=== PATIENT | male | born 1975 | race African-American/Black ===

== ENCOUNTER 2017-05-28 20:50 | Inpatient (IN) | payer MEDICARE, MEDICAID ==
[~2017-05-28] VITALS: Ht 185.4 cm; Wt 244.5 kg
[2017-05-28 21:41] LABS: BASO % 0 % (0-3); EOS % 0 % (0-3); HEMATOCRIT 34.8 % (39.0-53.0); HEMOGLOBIN 11.6 g/dL (13.0-17.5); LYMPH % 9 % (24-48); MEAN CORPUSCULAR HEMOGLOBIN 29 pg (25-35); MEAN CORPUSCULAR HGB CONC 33 g/dL (31-37); MEAN CORPUSCULAR VOLUME 88 fL (79-100); MONO % 10 % (0-9); NEUT % 81 % (31-73); PLATELET COUNT 703 x10^3/uL (140-400); RED BLOOD COUNT 3.96 x10^6/uL (4.30-5.70); WHITE BLOOD COUNT 12.2 x10^3/uL (4.0-11.0)
[2017-05-28] MEDS ORDERED: IV NORMAL SALINE 1000ML BAG 1,000 ML IV ONE ×2 (21:45→23:15)
[2017-05-28 21:54] LABS: CALCIUM 8.6 mg/dL (8.5-10.1); CREATININE 1.5 mg/dL (0.7-1.3); GFR 61.8; POTASSIUM 4.2 mmol/L (3.5-5.1)
[2017-05-28] MEDS ORDERED: VANCOMYCIN 2 GM in IV NORMAL SALINE 500ML BAG 500 ML IV ONE (22:00)
[2017-05-28] MEDS ORDERED: ONDANSETRON PF 4 MG/2 ML VIAL. IV PRN (22:15)
--- NOTE | 2017-05-28 23:05 | PHYS DOC ---
Past Medical History Past Medical History: Other Additional Past Medical Histor: LYMPHEDEMA Past Surgical History: Other Additional Past Surgical Histo: HERNIA Alcohol Use: None Drug Use: None Adult General Chief Complaint Chief Complaint: LOWER EXTREMITY EDEMA HPI HPI 41-year-old male with a history of chronic lymphedema and morbid obesity at 430 pounds. Patient now presents to the emergency department complaining of right lower extremity redness. His home health care nurse told him she thought his wound was infected so he was referred to the emergency department for evaluation. Patient denies fevers chills sweats or shaking chills. He has no headache or stiff neck. No chest pain or shortness of breath no abdominal pain. His legs early sore and by his description it does not feel any different. He does have severe chronic skin changes bilateral lower extremities. The right leg has a deep skinfold which has a bad odor coming from it however patient says he is not having any more discomfort than he typically would. Review of Systems Review of Systems Constitutional: Denies fever or chills [] Eyes: Denies change in visual acuity, redness, or eye pain [] HENT: Denies nasal congestion or sore throat [] Respiratory: Denies cough or shortness of breath [] Cardiovascular: No additional information not addressed in HPI [] GI: Denies abdominal pain, nausea, vomiting, bloody stools or diarrhea [] : Denies dysuria or hematuria [] Musculoskeletal: Denies back pain or joint pain [] Integument: Denies rash or skin lesions [] Neurologic: Denies headache, focal weakness or sensory changes [] Endocrine: Denies polyuria or polydipsia [] Current Medications Current Medications Current Medications Medications (Trade) Dose Ordered Sig/Beatriz Start Time Stop Time Status Last Admin Dose Admin Ondansetron HCl (Zofran) 4 mg PRN Q8HRS PRN 05/28/17 22:15 05/29/17 22:14 Sodium Chloride 1,000 ml @ 125 mls/hr 1X ONCE 05/28/17 21:45 05/29/17 05:44 05/28/17 21:48 125 MLS/HR Vancomycin HCl 2 gm/Sodium Chloride 500 ml @ 250 mls/hr 1X ONCE 05/28/17 22:00 05/28/17 23:59 05/28/17 22:04 250 MLS/HR Allergies Allergies Allergies Coded Allergies Type Severity Reaction Last Updated Verified Penicillins Allergy Unknown "RASH" 05/28/17 No Physical Exam Physical Exam Alert morbidly obese male 430 pounds alert comfortable appearing no acute distress texting on his phone and making phone calls. Clear lungs regular rate and rhythm no tachycardia benign abdomen bilateral lower extremity with severe chronic changes of lymphedema with chronic deformity and redundant tissue folds. Right knee and right proximal leg area with erythema warmth but no fluctuance or crepitus. Patient has a deep skinfold which is macerated and has an odor. No pain with movement of the leg however patient is at his baseline is unable to lift it off the bed because of its extreme size. Constitutional: Well developed, well nourished, no acute distress, non-toxic appearance. HENT: Normocephalic, atraumatic, bilateral external ears normal, oropharynx moist, no oral exudates, nose normal. Eyes: PERRLA, EOMI, conjunctiva normal, no discharge. Neck: Normal range of motion, no tenderness, supple, no stridor. Cardiovascular:Heart rate regular rhythm, no murmur Lungs & Thorax: Bilateral breath sounds clear to auscultation Abdomen: Bowel sounds normal, soft, no tenderness, no masses, no pulsatile masses. Skin: As above Back: No tenderness, no CVA tenderness. Extremities: No tenderness, no cyanosis, no clubbing, ROM intact, no edema. Neurologic: Alert and oriented X 3, normal motor function, normal sensory function, no focal deficits noted. Psychologic: Affect normal, judgement normal, mood normal. Current Patient Data Vital Signs Vital Signs Date Time Temp Pulse Resp B/P (MAP) Pulse Ox O2 Delivery O2 Flow Rate FiO2 05/28/17 20:50 98.9 132 20 157/85 (109) 97 Room Air 98.9 Lab Values Laboratory Tests Test 05/28/17 21:00 White Blood Count 12.2 x10^3/uL (4.0-11.0) H Red Blood Count 3.96 x10^6/uL (4.30-5.70) L Hemoglobin 11.6 g/dL (13.0-17.5) L Hematocrit 34.8 % (39.0-53.0) L Mean Corpuscular Volume 88 fL (79-100) Mean Corpuscular Hemoglobin 29 pg (25-35) Mean Corpuscular Hemoglobin Concent 33 g/dL (31-37) Red Cell Distribution Width 15.0 % (11.5-14.5) H Platelet Count 703 x10^3/uL (140-400) H Neutrophils (%) (Auto) 81 % (31-73) H Lymphocytes (%) (Auto) 9 % (24-48) L Monocytes (%) (Auto) 10 % (0-9) H Eosinophils (%) (Auto) 0 % (0-3) Basophils (%) (Auto) 0 % (0-3) Neutrophils # (Auto) 9.9 x10^3uL (1.8-7.7) H Lymphocytes # (Auto) 1.0 x10^3/uL (1.0-4.8) Monocytes # (Auto) 1.2 x10^3/uL (0.0-1.1) H Eosinophils # (Auto) 0.0 x10^3/uL (0.0-0.7) Basophils # (Auto) 0.0 x10^3/uL (0.0-0.2) Sodium Level 130 mmol/L (136-145) L Potassium Level 4.2 mmol/L (3.5-5.1) Chloride Level 93 mmol/L (98-107) L Carbon Dioxide Level 28 mmol/L (21-32) Anion Gap 9 (6-14) Blood Urea Nitrogen 17 mg/dL (8-26) Creatinine 1.5 mg/dL (0.7-1.3) H Estimated GFR (Cockcroft-Gault) 61.8 Glucose Level 118 mg/dL (70-99) H Lactic Acid Level 2.7 mmol/L (0.4-2.0) H Calcium Level 8.6 mg/dL (8.5-10.1) Troponin I Quantitative < 0.017 ng/mL (0.000-0.055) Laboratory Tests 05/28/17 21:00 Laboratory Tests 05/28/17 21:00 EKG EKG Normal sinus tachycardia at 119 normal axis no STEMI interpreted by ne Radiology/Procedures Radiology/Procedures Chest x-ray with Chronic changes no acute disease[] interpreted by ne Course & Med Decision Making Course & Med Decision Making Pertinent Labs and Imaging studies reviewed. (See chart for details) Signs and symptoms consistent with cellulitis in the setting of severe chronic lymphedema. Patient with mild tachycardia. IV fluids administered. Blood cultures drawn and antibiotic coverage initiated. Case discussed with Dr. Crane pulseless on-call who is aware of history and findings and agrees with inpatient telemetry admission to her service. [] Dragon Disclaimer Dragon Disclaimer This electronic medical record was generated, in whole or in part, using a voice recognition dictation system. Departure Departure Impression: Primary Impression: Cellulitis of right leg Additional Impression: Tachycardia Disposition: ADMITTED INPATIENT Admitting Physician: Génesis Crane Condition: STABLE Referrals: NO PCP (PCP) Problem Qualifiers LUCIE MCGRATH MD May 28, 2017 23:04
[2017-05-29 03:00] VITALS: BP 117/52
[2017-05-29 04:31] LABS: BILIRUBIN,URINE NEGATIVE (NEG); GLUCOSE,URINE NEGATIVE (NEG); NITRITE,URINE NEGATIVE (NEG); PH,URINE 5.5; PROTEIN,URINE NEGATIVE (NEG-TRACE)
[2017-05-29 04:51] LABS: BACTERIA,URINE FEW /HPF (0-FEW); RBC,URINE OCC /HPF (0-2); SQUAMOUS EPITHELIAL CELL,UR FEW /LPF
[2017-05-29 07:00] VITALS: BP 117/73
--- NOTE | 2017-05-29 08:05 | RAD ---
AP portable chest radiograph 05/28/2017 Clinical History: Bilateral leg swelling. An AP portable erect digital radiograph of the chest was obtained. Comparison study is dated 06/01/2006. The patient is slightly rotated to the right. The cardiac silhouette is normal in size. The thoracic aorta is minimally tortuous. No acute pulmonary infiltrate is seen. No pleural effusion or pneumothorax is noted. The osseous structures are grossly intact. Impression: No acute abnormality is seen.
[2017-05-29] MEDS: HYDROcodone/APAP 5/325MG 1 TAB TABLET PO PRN ×2 (08:13→21:00)
[2017-05-29] MEDS ORDERED: diphenhydrAMINE HCL 25 MG CAPSULE PO PRN (08:30)
[2017-05-29] MEDS ORDERED: ZOLPIDEM 5 MG TABLET. PO PRN (08:30)
--- NOTE | 2017-05-29 08:42 | PDOC1 ---
History and Physical Date of Admission Date of Admission DATE: 05/29/17 TIME: 08:34 Identification/Chief Complaint Chief Complaint leg pain, redness Problems: Source Source: Chart review, Patient History of Present Illness History of Present Illness MR. Cr, is 41-year-old male with a history of chronic lymphedema and morbid obesity BMI 65. He has not felt well for one week, lethargic, tired, and had worsening swellign of his RLE, with pain and then odor. he was given IV vanco in the ER and reports that he now feels better a few hours later than he has in almost 2 weeks. Weight stable, he has been disabled with chronic lymphedema since 2007. he takes no home meds, has no PCP his lymphedema wraps are old, and have not been effective lately, he has been in outpatient OT lymphedema clinic here prev. Past Medical History Cardiovascular: No pertinent hx Pulmonary: No pertinent hx GI: No pertinent hx Musculoskeletal: low back pain, Osteoarthritis Rheumatologic: Other ENT: No pertinent hx Endocrine: No pertinent hx Dermatology: No pertinent hx Social History Smoke: No ALCOHOL: none Drugs: None Current Medications Current Medications Current Medications Vancomycin HCl 2 gm/Sodium Chloride 500 ml @ 250 mls/hr 1X ONCE IV Last administered on 05/28/17 22:04; Start 05/28/17 at 22:00; Stop 05/28/17 at 23:59 ; Status DC Sodium Chloride 1,000 ml @ 125 mls/hr 1X ONCE IV Last administered on 21:48; Start 05/28/17 at 21:45; Stop 05/29/17 at 05:44; Status DC Ondansetron HCl (Zofran) 4 mg PRN Q8HRS PRN IV NAUSEA/VOMITING; Start 05/28/17 at 22:15; Stop 05/29/17 at 22:14 Sodium Chloride 1,000 ml @ 125 mls/hr 1X ONCE IV ; Start 05/28/17 at 23:15; Stop 05/29/17 at 07:14; Status DC Acetaminophen/ Hydrocodone Bitart (Lortab 5/325) 1 tab PRN Q6HRS PRN PO PAIN Last administered on 05/29/17 08:13; Start 05/29/17 at 07:45 Diphenhydramine HCl (Benadryl) 25 mg PRN Q6HRS PRN PO ITCHING; Start 05/29/17 at 08:30 Zolpidem Tartrate (Ambien) 5 mg PRN QHS PRN PO INSOMNIA, MAY REPEAT IN 1HR; Start 05/29/17 at 08:30 Allergies Allergies: Coded Allergies: Penicillins (Verified Allergy, Unknown, "RASH", 05/29/17) ROS General: YES: Chills, Fatigue, Malaise PSYCHOLOGICAL ROS: No: Anxiety, Behavioral Disorder, Concentration difficultie , Decreased libido, Depression, Disorientation, Hallucinations, Hostility, Irritablity, Memory difficulties, Mood Swings, Obsessive thoughts, Physical abuse, Sexual abuse, Sleep disturbances, Suicidal ideation, Other Eyes: No Blurry vision, No Decreased vision, No Double vision, No Dry eyes, No Excessive tearing, No Eye Pain, No Itchy Eyes, No Loss of vision, No Photophobia , No Scotomata, No Uses contacts, No Uses glasses, No Other HEENT: YES: Heacaches, No: Visual Changes, Hearing change, Nasal congestion, Nasal discharge, Oral lesions, Sinus pain, Sore Throat, Epistaxis, Sneezing, Snoring, Tinnitus, Vertigo, Vocal changes, Other Respiratory: No: Cough, Hemoptysis, Orthopnea, Pleuritic Pain, Shortness of breath, SOB with excertion, Sputum Changes, Stridor, Tachypnea, Wheezing, Other Cardiovascular: No Chest Pain, No Palpitations, No Orthopnea, No Paroxysmal Noc. Dyspnea, No Edema, No Lt Headedness, No Other Gastrointestinal: Yes Nausea, No Vomiting, No Abdominal Pain, No Diarrhea, No Constipation, No Melena, No Hematochezia, No Other Genitourinary: No Dysuria, No Frequency, No Incontinence, No Hematuria, No Retention, No Discharge, No Urgency, No Pain, No Flank Pain, No Other, No , No , No , No , No , No , No Musculoskeletal: Yes Gait Disturbance, Yes Joint Pain, Yes Joint Stiffness, Yes Joint Swelling, Yes Muscle Pain, Yes Pain In:, Yes Swelling In:, No Muscular Weakness, No Other Neurological: No Behavorial Changes, No Bowel/Bladder ControlChng, No Confusion , No Dizziness, No Gait Disturbance, No Headaches, No Impaired Coord/balance, No Memory Loss, No Numbness/Tingling, No Seizures, No Speech Problems, No Tremors, No Visual Changes, No Weakness, No Other Skin: Yes Dry Skin, Yes Rash, No Eczema, No Hair Changes, No Lumps, No Mole Changes, No Mottling, No Nail Changes, No Pruritus, No Skin Lesion Changes, No Other, No Acne Physical Exam General: Alert, Cooperative, No acute distress HEENT: EOMI Lungs: Normal air movement Heart: no gallops, no murmurs Abdomen: Normal bowel sounds, Soft (very obese) Extremities: Other (massive lymphedema, a few inches deep on left ankle, maybe 4-5 inches of edema- deep on right skin to ankle, with promienent fold, dry skin that i ssloughing, ) Skin: Other (redbess, malodor, skin flaking) Neuro: Normal speech, Sensation intact Psych/Mental Status: Mental status NL, Mood NL Vitals Vitals Vital Signs Date Time Temp Pulse Resp B/P (MAP) Pulse Ox O2 Delivery O2 Flow Rate FiO2 05/29/17 07:00 99.0 77 18 117/73 (88) 98 Room Air 99.0 Labs Labs Laboratory Tests Test 05/28/17 21:00 05/29/17 00:10 05/29/17 04:08 White Blood Count 12.2 x10^3/uL (4.0-11.0) Red Blood Count 3.96 x10^6/uL (4.30-5.70) Hemoglobin 11.6 g/dL (13.0-17.5) Hematocrit 34.8 % (39.0-53.0) Mean Corpuscular Volume 88 fL (79-100) Mean Corpuscular Hemoglobin 29 pg (25-35) Mean Corpuscular Hemoglobin Concent 33 g/dL (31-37) Red Cell Distribution Width 15.0 % (11.5-14.5) Platelet Count 703 x10^3/uL (140-400) Neutrophils (%) (Auto) 81 % (31-73) Lymphocytes (%) (Auto) 9 % (24-48) Monocytes (%) (Auto) 10 % (0-9) Eosinophils (%) (Auto) 0 % (0-3) Basophils (%) (Auto) 0 % (0-3) Neutrophils # (Auto) 9.9 x10^3uL (1.8-7.7) Lymphocytes # (Auto) 1.0 x10^3/uL (1.0-4.8) Monocytes # (Auto) 1.2 x10^3/uL (0.0-1.1) Eosinophils # (Auto) 0.0 x10^3/uL (0.0-0.7) Basophils # (Auto) 0.0 x10^3/uL (0.0-0.2) Sodium Level 130 mmol/L (136-145) Potassium Level 4.2 mmol/L (3.5-5.1) Chloride Level 93 mmol/L (98-107) Carbon Dioxide Level 28 mmol/L (21-32) Anion Gap 9 (6-14) Blood Urea Nitrogen 17 mg/dL (8-26) Creatinine 1.5 mg/dL (0.7-1.3) Estimated GFR (Cockcroft-Gault) 61.8 Glucose Level 118 mg/dL (70-99) Lactic Acid Level 2.7 mmol/L (0.4-2.0) 1.7 mmol/L (0.4-2.0) Calcium Level 8.6 mg/dL (8.5-10.1) Troponin I Quantitative < 0.017 ng/mL (0.000-0.055) Urine Collection Type Unknown Urine Color Yellow Urine Clarity Clear Urine pH 5.5 Urine Specific [place] 1.010 Urine Protein Negative mg/dL (NEG-TRACE) Urine Glucose (UA) Negative mg/dL (NEG) Urine Ketones (Stick) Negative mg/dL (NEG) Urine Blood Negative (NEG) Urine Nitrite Negative (NEG) Urine Bilirubin Negative (NEG) Urine Urobilinogen Dipstick 1.0 mg/dL (0.2 mg/dL) Urine Leukocyte Esterase Negative (NEG) Urine RBC Occ /HPF (0-2) Urine WBC 1-4 /HPF (0-4) Urine Squamous Epithelial Cells Few /LPF Urine Amorphous Sediment Present /HPF Urine Bacteria Few /HPF (0-FEW) Urine Mucus Mod /LPF Laboratory Tests Test 05/28/17 21:00 05/29/17 00:10 05/29/17 04:08 White Blood Count 12.2 x10^3/uL (4.0-11.0) Red Blood Count 3.96 x10^6/uL (4.30-5.70) Hemoglobin 11.6 g/dL (13.0-17.5) Hematocrit 34.8 % (39.0-53.0) Mean Corpuscular Volume 88 fL (79-100) Mean Corpuscular Hemoglobin 29 pg (25-35) Mean Corpuscular Hemoglobin Concent 33 g/dL (31-37) Red Cell Distribution Width 15.0 % (11.5-14.5) Platelet Count 703 x10^3/uL (140-400) Neutrophils (%) (Auto) 81 % (31-73) Lymphocytes (%) (Auto) 9 % (24-48) Monocytes (%) (Auto) 10 % (0-9) Eosinophils (%) (Auto) 0 % (0-3) Basophils (%) (Auto) 0 % (0-3) Neutrophils # (Auto) 9.9 x10^3uL (1.8-7.7) Lymphocytes # (Auto) 1.0 x10^3/uL (1.0-4.8) Monocytes # (Auto) 1.2 x10^3/uL (0.0-1.1) Eosinophils # (Auto) 0.0 x10^3/uL (0.0-0.7) Basophils # (Auto) 0.0 x10^3/uL (0.0-0.2) Sodium Level 130 mmol/L (136-145) Potassium Level 4.2 mmol/L (3.5-5.1) Chloride Level 93 mmol/L (98-107) Carbon Dioxide Level 28 mmol/L (21-32) Anion Gap 9 (6-14) Blood Urea Nitrogen 17 mg/dL (8-26) Creatinine 1.5 mg/dL (0.7-1.3) Estimated GFR (Cockcroft-Gault) 61.8 Glucose Level 118 mg/dL (70-99) Lactic Acid Level 2.7 mmol/L (0.4-2.0) 1.7 mmol/L (0.4-2.0) Calcium Level 8.6 mg/dL (8.5-10.1) Troponin I Quantitative < 0.017 ng/mL (0.000-0.055) Urine Collection Type Unknown Urine Color Yellow Urine Clarity Clear Urine pH 5.5 Urine Specific [place] 1.010 Urine Protein Negative mg/dL (NEG-TRACE) Urine Glucose (UA) Negative mg/dL (NEG) Urine Ketones (Stick) Negative mg/dL (NEG) Urine Blood Negative (NEG) Urine Nitrite Negative (NEG) Urine Bilirubin Negative (NEG) Urine Urobilinogen Dipstick 1.0 mg/dL (0.2 mg/dL) Urine Leukocyte Esterase Negative (NEG) Urine RBC Occ /HPF (0-2) Urine WBC 1-4 /HPF (0-4) Urine Squamous Epithelial Cells Few /LPF Urine Amorphous Sediment Present /HPF Urine Bacteria Few /HPF (0-FEW) Urine Mucus Mod /LPF VTE Prophylaxis Ordered VTE Prophylaxis Devices: No VTE Pharmacological Prophylaxi: Yes Assessment/Plan Assessment/Plan sepsis; from skin infection cellulitis, RLE, with marked lymphedema morbid obesity, BMI 65 leg pain right hyponatremia, dry, vasomotor nephropathy, no Hx of CKD, Cr 1.5 today thrombocytosis, reactive PT and OT pain control he feels improved with IV Vanc, will continue, ID consult OT lymph consult, MELANIE FROST MD May 29, 2017 08:42
[2017-05-29] MEDS: DOCUSATE SODIUM 100 MG CAPSULE. PO SCH (09:14)
[2017-05-29] MEDS: POLYETHYLENE GLYCOL 3350 17 GM PACKET. PO PRN (09:14)
[2017-05-29 10:00] VITALS: BP 113/46
--- NOTE | 2017-05-29 11:42 | EKG ---
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
[2017-05-29] MEDS: VANCOMYCIN PER PHARMACY MC PRN ×2 (14:21→14:28)
[2017-05-29 15:00] VITALS: BP 121/63
[2017-05-29] MEDS: VANCOMYCIN 2 GM in IV NORMAL SALINE 500ML BAG 500 ML IV SCH ×2 (15:23→23:45)
[2017-05-29] MEDS ORDERED: DIPHTH,PERTUSS(ACELL),TET TOX 0.5 ML DISP.SYRIN. VAX IM ONE (17:30)
[2017-05-29 19:00] VITALS: BP 120/68
--- NOTE | 2017-05-29 21:38 | CONS ---
DATE OF CONSULTATION: 05/29/2017 HISTORY OF PRESENT ILLNESS: The patient is a 41-year-old gentleman with morbid obesity and chronic bilateral lower extremity lymphedema. His BMI is 65. He presented to the Emergency Room with a history of 1 week lethargy, fatigue and ulceration of the right lower extremity, which became extremely tender to the touch. He also noticed a foul odor coming from the leg and the fact that both legs were extremely hot to the touch. When he came to the Emergency Room, he was given vancomycin and states he is feeling very much better than he was in the last 2 weeks. ID is consulted to assist with management of bilateral lower extremity cellulitis with right lower extremity ulceration. PAST MEDICAL HISTORY: Significant for chronic lymphedema since 2007. He has morbid obesity, chronic kidney disease and osteoarthritis with low back pain. FAMILY HISTORY: Noncontributory. SOCIAL HISTORY: He is single. He does not smoke and denies alcohol intake. He also does not use IV drugs. ALLERGIES: He is allergic to PENICILLIN which causes a rash. CURRENT MEDICATIONS: He has been started on vancomycin. For the rest of his medication list, please see the patient's [facility] chart. He does not recall ever having a tetanus shot. OBJECTIVE: VITAL SIGNS: Reveal a temperature of 99.9, pulse rate 124, respiratory rate of 18, blood pressure of 139/64, saturating 93% on room air. GENERAL: He is alert, cooperative, in no acute distress at rest. He is extremely obese. HEENT: Eyes, nose, mouth and throat are unremarkable. NECK: Supple, with no JVD, carotid bruits or thyromegaly. CHEST: Has equal excursion bilaterally, extremely obese chest wall, but no deformities noted. LUNGS: Clear to auscultation, extremely reduced bases. No crackles or rhonchi noted. CARDIAC: S1 and S2 are regular with no murmurs. ABDOMEN: Obese, soft, nontender with no hepatosplenomegaly. EXTREMITIES: Reveal massive lymphedema of bilateral lower extremities. Both feet are extremely hot compared to the rest of the body temperature and the heat extends up to just below the knee on both sides. The knees do not have any effusions in them. On the right side, there is a foul smelling ulcer on the lateral aspect of the right leg. It is about the size of the patient's palm. There is skin that is desquamating. There is no obvious purulence, but there is edema fluid that is coming out. His toes also reveal lichenification of the skin but there is no trauma or injury seen on the toes or on the feet. The left lower extremity also shows lesser changes of lymphedema, but lichenified skin is also noted. The right lower extremity is extremely hyperesthetic to touch. NEUROLOGIC: He is alert, awake, oriented with no focal neurological deficits noted; however, he cannot move his lower extremities because of the weight. LABORATORY DATA: Show a hemoglobin of 11.6, platelet count of 703, hematocrit of 35, white cell count of 12.2. Sodium is 130, potassium is 4.2, creatinine is 1.5, BUN is 17, chloride is 93, CO2 is 28, calcium is 11.8. Lactic acid is 2.7. Blood cultures seem to have been ordered on the . However, the order stays canceled, so I am not sure whether the patient has blood cultures that were done on admission. In summary, this is a 41-year-old morbidly obese gentleman with a BMI of 65, who comes in with cellulitis of both lower extremities as well as ulceration of the right lower extremity. ASSESSMENT: 1. Systemic inflammatory response syndrome due to cellulitis of both lower extremities. 2. Cellulitis of both lower extremities. 3. Ulceration of the right lower extremity. 4. Lymphedema of bilateral lower extremities due to morbid obesity. 5. Leukocytosis. 6. Lactic acidemia. 7. Hyponatremia. 8. Chronic kidney disease. 9. Thrombocytosis. PLAN: 1. I will order for a blood culture if the patient's temperature goes above 100.5. He will also need a wound culture, although it is likely to be polymicrobial. The only bacteria we will be looking for is MRSA and pseudomonas which would change our choice of discharge antibiotics. 2. The patient will need a Tdap vaccine and that has been ordered. The patient has accepted to take the vaccine. Thank you for consulting and we will continue following this gentleman with you. JAZMIN COLLINS MD DR: IRMA/halle JOB#: [id number] / [id number]
[2017-05-29 23:00] VITALS: BP 141/65
[2017-05-30 03:00] VITALS: BP 149/77
[2017-05-30 05:56] LABS: BASO # 0.1 x10^3/uL (0.0-0.2); BASO % 1 % (0-3); EOS % 1 % (0-3); HEMATOCRIT 31.9 % (39.0-53.0); HEMOGLOBIN 10.5 g/dL (13.0-17.5); LYMPH # 1.4 x10^3/uL (1.0-4.8); LYMPH % 11 % (24-48); MEAN CORPUSCULAR HEMOGLOBIN 29 pg (25-35); MEAN CORPUSCULAR HGB CONC 33 g/dL (31-37); MEAN CORPUSCULAR VOLUME 88 fL (79-100); MONO % 9 % (0-9); NEUT % 79 % (31-73); PLATELET COUNT 622 x10^3/uL (140-400); RED BLOOD COUNT 3.61 x10^6/uL (4.30-5.70); RED CELL DISTRIBUTION WIDTH 15.6 % (11.5-14.5); WHITE BLOOD COUNT 12.7 x10^3/uL (4.0-11.0)
[2017-05-30 06:12] LABS: ALBUMIN 1.4 g/dL (3.4-5.0); ALBUMIN/GLOBULIN RATIO 0.2 (1.0-1.7); CALCIUM 8.3 mg/dL (8.5-10.1); CREATININE 1.2 mg/dL (0.7-1.3); POTASSIUM 4.1 mmol/L (3.5-5.1); TOTAL BILIRUBIN 0.6 mg/dL (0.2-1.0); TOTAL PROTEIN 7.9 g/dL (6.4-8.2)
[2017-05-30] MEDS: VANCOMYCIN 2 GM in IV NORMAL SALINE 500ML BAG 500 ML IV SCH ×4 (06:13→22:14)
[2017-05-30] MEDS: HYDROcodone/APAP 5/325MG 1 TAB TABLET PO PRN ×2 (06:20→22:17)
[2017-05-30 07:00] VITALS: BP 124/70
[2017-05-30] MEDS: DOCUSATE SODIUM 100 MG CAPSULE. PO SCH (08:43)
[2017-05-30 11:00] VITALS: BP 139/78
--- NOTE | 2017-05-30 11:06 | PDOC ---
PROGRESS NOTES Chief Complaint Chief Complaint sepsis; from skin infection cellulitis, RLE, with marked lymphedema morbid obesity, BMI 65 leg pain right hyponatremia, dry, vasomotor nephropathy, no Hx of CKD, Cr 1.5 today thrombocytosis, reactive severe malnutrition in morbid obesity, BMI 65 History of Present Illness History of Present Illness PT and OT pain control he feels improved with IV Vanc, will continue, ID consult following nutrition supplements, hypoalbumin, no urine protein OT lymph consult, Vitals Vitals Vital Signs Date Time Temp Pulse Resp B/P (MAP) Pulse Ox O2 Delivery O2 Flow Rate FiO2 05/30/17 08:10 Room Air 05/30/17 07:20 18 99 05/30/17 07:00 98.8 111 124/70 (88) 98.8 Physical Exam General: Alert, Cooperative, No acute distress Heart: Regular rate Lungs: Clear Abdomen: Normal bowel sounds, Soft (very obese) Extremities: Other (massive lymphedema, a few inches deep on left ankle, maybe 4-5 inches of edema- deep on right skin to ankle, with promienent fold, dry skin that i ssloughing, ) Skin: No rashes, Other (redbess, malodor, skin flaking) Labs LABS Laboratory Tests Test 05/29/17 18:00 05/30/17 04:30 C-Reactive Protein, Quantitative 258.3 mg/L (0-3.3) White Blood Count 12.7 x10^3/uL (4.0-11.0) Red Blood Count 3.61 x10^6/uL (4.30-5.70) Hemoglobin 10.5 g/dL (13.0-17.5) Hematocrit 31.9 % (39.0-53.0) Mean Corpuscular Volume 88 fL (79-100) Mean Corpuscular Hemoglobin 29 pg (25-35) Mean Corpuscular Hemoglobin Concent 33 g/dL (31-37) Red Cell Distribution Width 15.6 % (11.5-14.5) Platelet Count 622 x10^3/uL (140-400) Neutrophils (%) (Auto) 79 % (31-73) Lymphocytes (%) (Auto) 11 % (24-48) Monocytes (%) (Auto) 9 % (0-9) Eosinophils (%) (Auto) 1 % (0-3) Basophils (%) (Auto) 1 % (0-3) Neutrophils # (Auto) 10.0 x10^3uL (1.8-7.7) Lymphocytes # (Auto) 1.4 x10^3/uL (1.0-4.8) Monocytes # (Auto) 1.1 x10^3/uL (0.0-1.1) Eosinophils # (Auto) 0.1 x10^3/uL (0.0-0.7) Basophils # (Auto) 0.1 x10^3/uL (0.0-0.2) Sodium Level 136 mmol/L (136-145) Potassium Level 4.1 mmol/L (3.5-5.1) Chloride Level 98 mmol/L (98-107) Carbon Dioxide Level 27 mmol/L (21-32) Anion Gap 11 (6-14) Blood Urea Nitrogen 13 mg/dL (8-26) Creatinine 1.2 mg/dL (0.7-1.3) Estimated GFR (Cockcroft-Gault) 80.0 BUN/Creatinine Ratio 11 (6-20) Glucose Level 81 mg/dL (70-99) Calcium Level 8.3 mg/dL (8.5-10.1) Total Bilirubin 0.6 mg/dL (0.2-1.0) Aspartate Amino Transf (AST/SGOT) 37 U/L (15-37) Alanine Aminotransferase (ALT/SGPT) 29 U/L (16-63) Alkaline Phosphatase 64 U/L (46-116) Total Protein 7.9 g/dL (6.4-8.2) Albumin 1.4 g/dL (3.4-5.0) Albumin/Globulin Ratio 0.2 (1.0-1.7) Review of Systems Review of Systems no n/v/d Comment Review of Relevant I have reviewed the following items farzad (where applicable) has been applied. Labs Laboratory Tests Test 05/28/17 21:00 05/29/17 00:10 05/29/17 04:08 05/29/17 18:00 White Blood Count 12.2 x10^3/uL (4.0-11.0) Red Blood Count 3.96 x10^6/uL (4.30-5.70) Hemoglobin 11.6 g/dL (13.0-17.5) Hematocrit 34.8 % (39.0-53.0) Mean Corpuscular Volume 88 fL (79-100) Mean Corpuscular Hemoglobin 29 pg (25-35) Mean Corpuscular Hemoglobin Concent 33 g/dL (31-37) Red Cell Distribution Width 15.0 % (11.5-14.5) Platelet Count 703 x10^3/uL (140-400) Neutrophils (%) (Auto) 81 % (31-73) Lymphocytes (%) (Auto) 9 % (24-48) Monocytes (%) (Auto) 10 % (0-9) Eosinophils (%) (Auto) 0 % (0-3) Basophils (%) (Auto) 0 % (0-3) Neutrophils # (Auto) 9.9 x10^3uL (1.8-7.7) Lymphocytes # (Auto) 1.0 x10^3/uL (1.0-4.8) Monocytes # (Auto) 1.2 x10^3/uL (0.0-1.1) Eosinophils # (Auto) 0.0 x10^3/uL (0.0-0.7) Basophils # (Auto) 0.0 x10^3/uL (0.0-0.2) Sodium Level 130 mmol/L (136-145) Potassium Level 4.2 mmol/L (3.5-5.1) Chloride Level 93 mmol/L (98-107) Carbon Dioxide Level 28 mmol/L (21-32) Anion Gap 9 (6-14) Blood Urea Nitrogen 17 mg/dL (8-26) Creatinine 1.5 mg/dL (0.7-1.3) Estimated GFR (Cockcroft-Gault) 61.8 Glucose Level 118 mg/dL (70-99) Lactic Acid Level 2.7 mmol/L (0.4-2.0) 1.7 mmol/L (0.4-2.0) Calcium Level 8.6 mg/dL (8.5-10.1) Troponin I Quantitative < 0.017 ng/mL (0.000-0.055) Urine Collection Type Unknown Urine Color Yellow Urine Clarity Clear Urine pH 5.5 Urine Specific [place] 1.010 Urine Protein Negative mg/dL (NEG-TRACE) Urine Glucose (UA) Negative mg/dL (NEG) Urine Ketones (Stick) Negative mg/dL (NEG) Urine Blood Negative (NEG) Urine Nitrite Negative (NEG) Urine Bilirubin Negative (NEG) Urine Urobilinogen Dipstick 1.0 mg/dL (0.2 mg/dL) Urine Leukocyte Esterase Negative (NEG) Urine RBC Occ /HPF (0-2) Urine WBC 1-4 /HPF (0-4) Urine Squamous Epithelial Cells Few /LPF Urine Amorphous Sediment Present /HPF Urine Bacteria Few /HPF (0-FEW) Urine Mucus Mod /LPF C-Reactive Protein, Quantitative 258.3 mg/L (0-3.3) Test 05/30/17 04:30 White Blood Count 12.7 x10^3/uL (4.0-11.0) Red Blood Count 3.61 x10^6/uL (4.30-5.70) Hemoglobin 10.5 g/dL (13.0-17.5) Hematocrit 31.9 % (39.0-53.0) Mean Corpuscular Volume 88 fL (79-100) Mean Corpuscular Hemoglobin 29 pg (25-35) Mean Corpuscular Hemoglobin Concent 33 g/dL (31-37) Red Cell Distribution Width 15.6 % (11.5-14.5) Platelet Count 622 x10^3/uL (140-400) Neutrophils (%) (Auto) 79 % (31-73) Lymphocytes (%) (Auto) 11 % (24-48) Monocytes (%) (Auto) 9 % (0-9) Eosinophils (%) (Auto) 1 % (0-3) Basophils (%) (Auto) 1 % (0-3) Neutrophils # (Auto) 10.0 x10^3uL (1.8-7.7) Lymphocytes # (Auto) 1.4 x10^3/uL (1.0-4.8) Monocytes # (Auto) 1.1 x10^3/uL (0.0-1.1) Eosinophils # (Auto) 0.1 x10^3/uL (0.0-0.7) Basophils # (Auto) 0.1 x10^3/uL (0.0-0.2) Sodium Level 136 mmol/L (136-145) Potassium Level 4.1 mmol/L (3.5-5.1) Chloride Level 98 mmol/L (98-107) Carbon Dioxide Level 27 mmol/L (21-32) Anion Gap 11 (6-14) Blood Urea Nitrogen 13 mg/dL (8-26) Creatinine 1.2 mg/dL (0.7-1.3) Estimated GFR (Cockcroft-Gault) 80.0 BUN/Creatinine Ratio 11 (6-20) Glucose Level 81 mg/dL (70-99) Calcium Level 8.3 mg/dL (8.5-10.1) Total Bilirubin 0.6 mg/dL (0.2-1.0) Aspartate Amino Transf (AST/SGOT) 37 U/L (15-37) Alanine Aminotransferase (ALT/SGPT) 29 U/L (16-63) Alkaline Phosphatase 64 U/L (46-116) Total Protein 7.9 g/dL (6.4-8.2) Albumin 1.4 g/dL (3.4-5.0) Albumin/Globulin Ratio 0.2 (1.0-1.7) Laboratory Tests Test 05/29/17 18:00 05/30/17 04:30 C-Reactive Protein, Quantitative 258.3 mg/L (0-3.3) White Blood Count 12.7 x10^3/uL (4.0-11.0) Red Blood Count 3.61 x10^6/uL (4.30-5.70) Hemoglobin 10.5 g/dL (13.0-17.5) Hematocrit 31.9 % (39.0-53.0) Mean Corpuscular Volume 88 fL (79-100) Mean Corpuscular Hemoglobin 29 pg (25-35) Mean Corpuscular Hemoglobin Concent 33 g/dL (31-37) Red Cell Distribution Width 15.6 % (11.5-14.5) Platelet Count 622 x10^3/uL (140-400) Neutrophils (%) (Auto) 79 % (31-73) Lymphocytes (%) (Auto) 11 % (24-48) Monocytes (%) (Auto) 9 % (0-9) Eosinophils (%) (Auto) 1 % (0-3) Basophils (%) (Auto) 1 % (0-3) Neutrophils # (Auto) 10.0 x10^3uL (1.8-7.7) Lymphocytes # (Auto) 1.4 x10^3/uL (1.0-4.8) Monocytes # (Auto) 1.1 x10^3/uL (0.0-1.1) Eosinophils # (Auto) 0.1 x10^3/uL (0.0-0.7) Basophils # (Auto) 0.1 x10^3/uL (0.0-0.2) Sodium Level 136 mmol/L (136-145) Potassium Level 4.1 mmol/L (3.5-5.1) Chloride Level 98 mmol/L (98-107) Carbon Dioxide Level 27 mmol/L (21-32) Anion Gap 11 (6-14) Blood Urea Nitrogen 13 mg/dL (8-26) Creatinine 1.2 mg/dL (0.7-1.3) Estimated GFR (Cockcroft-Gault) 80.0 BUN/Creatinine Ratio 11 (6-20) Glucose Level 81 mg/dL (70-99) Calcium Level 8.3 mg/dL (8.5-10.1) Total Bilirubin 0.6 mg/dL (0.2-1.0) Aspartate Amino Transf (AST/SGOT) 37 U/L (15-37) Alanine Aminotransferase (ALT/SGPT) 29 U/L (16-63) Alkaline Phosphatase 64 U/L (46-116) Total Protein 7.9 g/dL (6.4-8.2) Albumin 1.4 g/dL (3.4-5.0) Albumin/Globulin Ratio 0.2 (1.0-1.7) Microbiology 05/28/17 Blood Culture - Preliminary, Resulted NO GROWTH AFTER 1 DAY 05/29/17 Gram Stain - Final, Complete Medications Current Medications Vancomycin HCl 2 gm/Sodium Chloride 500 ml @ 250 mls/hr 1X ONCE IV Last administered on 05/28/17 22:04; Start 05/28/17 at 22:00; Stop 05/28/17 at 23:59 ; Status DC Sodium Chloride 1,000 ml @ 125 mls/hr 1X ONCE IV Last administered on 21:48; Start 05/28/17 at 21:45; Stop 05/29/17 at 05:44; Status DC Ondansetron HCl (Zofran) 4 mg PRN Q8HRS PRN IV NAUSEA/VOMITING; Start 05/28/17 at 22:15; Stop 05/29/17 at 22:14; Status DC Sodium Chloride 1,000 ml @ 125 mls/hr 1X ONCE IV ; Start 05/28/17 at 23:15; Stop 05/29/17 at 07:14; Status DC Acetaminophen/ Hydrocodone Bitart (Lortab 5/325) 1 tab PRN Q6HRS PRN PO PAIN Last administered on 05/29/17 21:00; Start 05/29/17 at 07:45 Diphenhydramine HCl (Benadryl) 25 mg PRN Q6HRS PRN PO ITCHING; Start 05/29/17 at 08:30 Zolpidem Tartrate (Ambien) 5 mg PRN QHS PRN PO INSOMNIA, MAY REPEAT IN 1HR; Start 05/29/17 at 08:30 Docusate Sodium (Colace) 100 mg DAILY PO Last administered on 05/30/17 08:43; Start 05/29/17 at 09:00 Polyethylene Glycol (miraLAX PACKET) 17 gm PRN DAILY PRN PO CONSTIPATION Last administered on 05/29/17 09:14; Start 05/29/17 at 08:45 Vancomycin HCl (Vanco Per Pharmacy) 1 each PRN DAILY PRN MC SEE COMMENTS Last administered on 05/29/17 14:28; Start 05/29/17 at 14:15 Vancomycin HCl 2 gm/Sodium Chloride 500 ml @ 250 mls/hr Q8H IV Last administered on 05/30/17 06:13; Start 05/29/17 at 14:30 Vancomycin HCl 1 each 1X ONCE MC ; Start 05/30/17 at 14:00; Stop 05/30/17 at 14 :01 Diphtheria/ Tetanus/Acell Pertussis (Boostrix) 0.5 ml ONCE ONCE VAX IM Last administered on 05/29/17 18:32; Start 05/29/17 at 17:30; Stop 05/29/17 at 17:31 ; Status DC Vitals/I & O Vital Sign - Last 24 Hours 05/29/17 05/29/17 05/29/17 05/29/17 15:00 19:00 20:20 21:00 Temp 98.7 102.9 98.7 102.9 Pulse 120 122 Resp 18 18 22 B/P (MAP) 121/63 (82) 120/68 (85) Pulse Ox 96 96 O2 Delivery Room Air Room Air Room Air Room Air 05/29/17 05/30/17 05/30/17 05/30/17 23:00 03:00 06:20 07:00 Temp 102.0 100.8 98.8 102.0 100.8 98.8 Pulse 119 110 111 Resp 20 B/P (MAP) 141/65 (90) 149/77 (101) 124/70 (88) Pulse Ox 90 99 94 O2 Delivery Room Air Room Air Room Air Room Air 05/30/17 05/30/17 07:20 08:10 Resp 18 Pulse Ox 99 O2 Delivery Room Air Room Air Intake and Output 05/30/17 05/30/17 05/31/17 15:00 23:00 07:00 Intake Total 250 ml Balance 250 ml MELANIE FROST MD May 30, 2017 11:06
[2017-05-30] MEDS: POLYETHYLENE GLYCOL 3350 17 GM PACKET. PO PRN (11:54)
[2017-05-30] MEDS: VANCOMYCIN PER PHARMACY MC PRN (14:41)
[2017-05-30 15:00] VITALS: BP 171/83
--- NOTE | 2017-05-30 15:17 | PDOC ---
Infectious Disease Note Subjective Subjective Fever Tmax 102.9 Pain controlled ROS ROS GEN: Denies chills or sweats CV: Denies chest pain RESP: Denies shortness of air, cough GI: Denies n/v/d Vital Sign Vital Signs Vital Signs Date Time Temp Pulse Resp B/P (MAP) Pulse Ox O2 Delivery O2 Flow Rate FiO2 05/30/17 11:00 98.6 114 139/78 (98) 95 Room Air 98.6 05/30/17 07:20 18 Physical Exam PHYSICAL EXAM GENERAL: Lying down, NAD LUNGS: Clear anteriorly CARDIAC: S1 and S2 ABDOMEN: Obese, soft, nontender EXTREMITIES: BLE severe lymphedema. Ulceration right lower leg NEUROLOGIC: Alert and oriented x3. Labs Lab Laboratory Tests Test 05/29/17 18:00 05/30/17 04:30 05/30/17 13:45 C-Reactive Protein, Quantitative 258.3 mg/L (0-3.3) White Blood Count 12.7 x10^3/uL (4.0-11.0) Red Blood Count 3.61 x10^6/uL (4.30-5.70) Hemoglobin 10.5 g/dL (13.0-17.5) Hematocrit 31.9 % (39.0-53.0) Mean Corpuscular Volume 88 fL (79-100) Mean Corpuscular Hemoglobin 29 pg (25-35) Mean Corpuscular Hemoglobin Concent 33 g/dL (31-37) Red Cell Distribution Width 15.6 % (11.5-14.5) Platelet Count 622 x10^3/uL (140-400) Neutrophils (%) (Auto) 79 % (31-73) Lymphocytes (%) (Auto) 11 % (24-48) Monocytes (%) (Auto) 9 % (0-9) Eosinophils (%) (Auto) 1 % (0-3) Basophils (%) (Auto) 1 % (0-3) Neutrophils # (Auto) 10.0 x10^3uL (1.8-7.7) Lymphocytes # (Auto) 1.4 x10^3/uL (1.0-4.8) Monocytes # (Auto) 1.1 x10^3/uL (0.0-1.1) Eosinophils # (Auto) 0.1 x10^3/uL (0.0-0.7) Basophils # (Auto) 0.1 x10^3/uL (0.0-0.2) Sodium Level 136 mmol/L (136-145) Potassium Level 4.1 mmol/L (3.5-5.1) Chloride Level 98 mmol/L (98-107) Carbon Dioxide Level 27 mmol/L (21-32) Anion Gap 11 (6-14) Blood Urea Nitrogen 13 mg/dL (8-26) Creatinine 1.2 mg/dL (0.7-1.3) Estimated GFR (Cockcroft-Gault) 80.0 BUN/Creatinine Ratio 11 (6-20) Glucose Level 81 mg/dL (70-99) Calcium Level 8.3 mg/dL (8.5-10.1) Total Bilirubin 0.6 mg/dL (0.2-1.0) Aspartate Amino Transf (AST/SGOT) 37 U/L (15-37) Alanine Aminotransferase (ALT/SGPT) 29 U/L (16-63) Alkaline Phosphatase 64 U/L (46-116) Total Protein 7.9 g/dL (6.4-8.2) Albumin 1.4 g/dL (3.4-5.0) Albumin/Globulin Ratio 0.2 (1.0-1.7) Vancomycin Level Trough 20.3 mcg/mL (10.0-20.0) Vancomycin Last Dose Date 05/30/17 Vancomycin Last Dose Time 0630 Micro BLOOD CULTURE Preliminary NO GROWTH AFTER 1 DAY Right leg GRAM STAIN Final WBCS NONE SEEN RBCS NONE SEEN GRAM POSITIVE COCCI FEW GRAM POSITIVE RODS OCCASIONAL GRAM NEGATIVE RODS MANY SQUAMOUS EPITHELIAL CELLS MANY Objective Assessment Fever SIRS due to cellulitis of both lower extremities Cellulitis of both lower extremities. Ulceration of the right lower extremity. Polymicrobial Lymphedema of bilateral lower extremities due to morbid obesity. Leukocytosis. Lactic acidemia. Hyponatremia. Chronic kidney disease. Thrombocytosis. Plan Plan of Care vanc vanc trough 20.3 CRP 258.3 f/u organism ID/susceptibilities Leg elevation Patient seen and examined. Chart reviewed in detail. Case discussed with MANAGER SQL. Agree with above plan. JOVAN ZHAO APRN May 30, 2017 15:17 JAZMIN COLLINS MD May 30, 2017 21:13
[2017-05-30 19:00] VITALS: BP 144/84
[2017-05-30 23:00] VITALS: BP 124/68
[2017-05-31 03:00] VITALS: BP 146/101
[2017-05-31] MEDS: VANCOMYCIN 2 GM in IV NORMAL SALINE 500ML BAG 500 ML IV SCH ×2 (05:53→18:30)
[2017-05-31 07:00] VITALS: BP 143/59
[2017-05-31 11:00] VITALS: BP 149/90
[2017-05-31] MEDS: DOCUSATE SODIUM 100 MG CAPSULE. PO SCH (11:10)
--- NOTE | 2017-05-31 11:43 | PDOC ---
PROGRESS NOTES Chief Complaint Chief Complaint Cellulitis ASSESSMENT AND PLAN: 1. Sepsis: resolved 2. Cellulitis: RLE. vanco/merrem as per ID 3. LE lymphedema with chronic venous stasis changes: lymphedema treatments 4. Thrombocytosis: reactive, improving. monitor 5. Hyponatremia: resolved 6. HAILEY on CKD3: vasomotor nephropathy. resolved 7. Severe PCM with morbid obesity: nutrition consult 8. Dispo: OT/PT History of Present Illness History of Present Illness pain in legs controlled. no c/o Vitals Vitals Vital Signs Date Time Temp Pulse Resp B/P (MAP) Pulse Ox O2 Delivery O2 Flow Rate FiO2 05/31/17 08:00 Room Air 05/31/17 07:00 98.1 106 19 143/59 (87) 95 98.1 Physical Exam General: Alert, Oriented X3, Cooperative, No acute distress Heart: Regular rate Lungs: Clear Abdomen: Normal bowel sounds, Soft (very obese) Extremities: Other (massive lymphedema, a few inches deep on left ankle, maybe 4-5 inches of edema- deep on right skin to ankle, with promienent fold) Skin: No rashes, Other (R LE with deep skinfold erythema, malodorous. rest of skin very dry, flaking) Labs LABS Laboratory Tests Test 05/30/17 13:45 Vancomycin Level Trough 20.3 mcg/mL (10.0-20.0) Vancomycin Last Dose Date 05/30/17 Vancomycin Last Dose Time 0630 ANTOINETTE ALVARADO MD May 31, 2017 11:43
--- NOTE | 2017-05-31 11:48 | PDOC ---
Infectious Disease Note Subjective Subjective feeling better ROS ROS GEN: Denies fevers, chills, sweats HEENT: Denies blurred vision, sore throat CV: Denies chest pain RESP: Denies shortness of air, cough GI: Denies n/v/d NEURO: Denies confusion, dizziness Vital Sign Vital Signs Vital Signs Date Time Temp Pulse Resp B/P (MAP) Pulse Ox O2 Delivery O2 Flow Rate FiO2 05/31/17 08:00 Room Air 05/31/17 07:00 98.1 106 19 143/59 (87) 95 98.1 Physical Exam PHYSICAL EXAM GENERAL: NAD, Alert HEENT: PERRL, OC/OP NECK: Supple, no JVD, no LN LUNGS: Clear HEART: S1S2, no gallop, no murmur ABD: Soft, NT, no organomegaly, no rebound EXT: ++++ edema, no cyanosis PERSONNEL ASSISTANT: Alert, oriented x 3, no focal neurologic deficit SKIN: No rash IV: ok Labs Lab Laboratory Tests Test 05/30/17 13:45 Vancomycin Level Trough 20.3 mcg/mL (10.0-20.0) Vancomycin Last Dose Date 05/30/17 Vancomycin Last Dose Time 0630 Objective Assessment Fever SIRS due to cellulitis of both lower extremities Cellulitis of both lower extremities. Ulceration of the right lower extremity. Polymicrobial Lymphedema of bilateral lower extremities due to morbid obesity. Leukocytosis. Lactic acidemia. Hyponatremia. Chronic kidney disease. Thrombocytosis. Plan Plan of Care vanc and meropenem f/u organism ID/susceptibilities Leg elevation VENANCIO ROBBINS MD May 31, 2017 11:48
[2017-05-31] MEDS: MEROPENEM 1 GM in IV NORMAL SALINE 100ML 100 ML IV SCH ×2 (14:16→20:37)
[2017-05-31 14:58] VITALS: BP 152/92
[2017-05-31] MEDS: VANCOMYCIN PER PHARMACY MC PRN (18:33)
[2017-05-31 19:00] VITALS: BP 130/79
[2017-05-31] MEDS: METOPROLOL TART IMMED RELEASE 25 MG TABLET. PO SCH (20:36)
[2017-05-31] MEDS: HYDROcodone/APAP 5/325MG 1 TAB TABLET PO PRN (20:37)
[2017-05-31 23:00] VITALS: BP 121/72
[2017-06-01] MEDS: VANCOMYCIN 1.75 GM in IV NORMAL SALINE 500ML BAG 500 ML IV SCH ×3 (01:32→18:00)
[2017-06-01 03:14] VITALS: BP 139/83
[2017-06-01] MEDS ORDERED: guaiFENesin DM 200MG/20MG 10 ML SYRUP PO PRN (03:15)
[2017-06-01] MEDS ORDERED: guaiFENesin ORAL 200 MG/10 ML LIQUID. PO PRN (03:15)
[2017-06-01] MEDS: MEROPENEM 1 GM in IV NORMAL SALINE 100ML 100 ML IV SCH ×3 (05:14→20:40)
[2017-06-01 07:00] VITALS: BP 132/71
--- NOTE | 2017-06-01 09:02 | PDOC ---
Infectious Disease Note Subjective Subjective feeling better ROS ROS GEN: Denies fevers, chills, sweats HEENT: Denies blurred vision, sore throat CV: Denies chest pain RESP: Denies shortness of air, cough GI: Denies n/v/d NEURO: Denies confusion, dizziness Vital Sign Vital Signs Vital Signs Date Time Temp Pulse Resp B/P (MAP) Pulse Ox O2 Delivery O2 Flow Rate FiO2 06/01/17 07:00 98.2 106 18 132/71 (91) 93 Room Air 98.2 Physical Exam PHYSICAL EXAM GENERAL: NAD, Alert HEENT: PERRL, OC/OP NECK: Supple, no JVD, no LN LUNGS: Clear HEART: S1S2, no gallop, no murmur ABD: Soft, NT, no organomegaly, no rebound EXT: ++++ edema, no cyanosis RISK PREVENTION ENGINEER: Alert, oriented x 3, no focal neurologic deficit SKIN: No rash IV: ok Labs Lab Laboratory Tests Test 05/31/17 14:00 Vancomycin Level Trough 20.5 mcg/mL (10.0-20.0) Vancomycin Last Dose Date 05/21/17 Vancomycin Last Dose Time 0630 Objective Assessment Fever SIRS due to cellulitis of both lower extremities Cellulitis of both lower extremities. Ulceration of the right lower extremity. Polymicrobial Lymphedema of bilateral lower extremities due to morbid obesity. Leukocytosis. Lactic acidemia. Hyponatremia. Chronic kidney disease. Thrombocytosis. Plan Plan of Care vanc and meropenem pt/ot Leg elevation VENANCIO ROBBINS MD Jun 01, 2017 09:02
--- NOTE | 2017-06-01 09:24 | PDOC ---
PROGRESS NOTES Chief Complaint Chief Complaint Cellulitis ASSESSMENT AND PLAN: 1. Sepsis: resolved 2. Cellulitis: RLE. vanco/merrem as per ID; awaiting final decision re poss PO Abx before making D/C plans 3. LE lymphedema with chronic venous stasis changes: lymphedema treatments; acute rehab recommended 4. Thrombocytosis: reactive, improving. monitor 5. Hyponatremia: resolved 6. HAILEY on CKD3: vasomotor nephropathy. resolved 7. Severe PCM with morbid obesity: nutrition consult 8. Dispo: OT/PT History of Present Illness History of Present Illness pain in legs controlled. no c/o Vitals Vitals Vital Signs Date Time Temp Pulse Resp B/P (MAP) Pulse Ox O2 Delivery O2 Flow Rate FiO2 06/01/17 07:00 98.2 106 18 132/71 (91) 93 Room Air 98.2 Physical Exam General: Alert, Oriented X3, Cooperative, No acute distress Heart: Regular rate Lungs: Clear Abdomen: Normal bowel sounds, Soft (very obese) Extremities: Other (massive lymphedema, a few inches deep on left ankle, maybe 4-5 inches of edema- deep on right skin to ankle, with promienent fold) Skin: No rashes, Other (R LE with deep skinfold erythema, malodorous. rest of skin very dry, flaking) Labs LABS Laboratory Tests Test 05/31/17 14:00 Vancomycin Level Trough 20.5 mcg/mL (10.0-20.0) Vancomycin Last Dose Date 05/21/17 Vancomycin Last Dose Time 0630 ANTOINETTE ALVARADO MD Jun 01, 2017 09:24
[2017-06-01] MEDS ORDERED: AMMONIUM LACTATE 12% TOPICAL LOTION 226GM BOTTLE. TP PRN (10:00)
[2017-06-01] MEDS: DOCUSATE SODIUM 100 MG CAPSULE. PO SCH (10:18)
[2017-06-01] MEDS: METOPROLOL TART IMMED RELEASE 25 MG TABLET. PO SCH ×2 (10:18→20:39)
[2017-06-01] MEDS: POLYETHYLENE GLYCOL 3350 17 GM PACKET. PO PRN (10:28)
[2017-06-01 11:00] VITALS: BP 121/87
[2017-06-01] MEDS: VANCOMYCIN PER PHARMACY MC PRN (12:40)
[2017-06-01] MEDS: HYDROcodone/APAP 5/325MG 1 TAB TABLET PO PRN (13:49)
[2017-06-01 15:00] VITALS: BP 133/81
[2017-06-01 19:00] VITALS: BP 121/62
[2017-06-01 23:00] VITALS: BP 123/67
[2017-06-02] MEDS: VANCOMYCIN 1.75 GM in IV NORMAL SALINE 500ML BAG 500 ML IV SCH ×2 (02:32→09:47)
[2017-06-02 03:00] VITALS: BP 136/62
[2017-06-02] MEDS: MEROPENEM 1 GM in IV NORMAL SALINE 100ML 100 ML IV SCH ×2 (05:39→14:19)
[2017-06-02 06:14] LABS: HEMATOCRIT 28.8 % (39.0-53.0); HEMOGLOBIN 9.7 g/dL (13.0-17.5); MEAN CORPUSCULAR HEMOGLOBIN 29 pg (25-35); MEAN CORPUSCULAR VOLUME 87 fL (79-100); WHITE BLOOD COUNT 11.3 x10^3/uL (4.0-11.0)
[2017-06-02 06:15] LABS: BASO % 0 % (0-3); EOS % 3 % (0-3); LYMPH # 1.5 x10^3/uL (1.0-4.8); LYMPH % 13 % (24-48); MEAN CORPUSCULAR HGB CONC 34 g/dL (31-37); MONO % 12 % (0-9); NEUT % 72 % (31-73); PLATELET COUNT 392 x10^3/uL (140-400); RED CELL DISTRIBUTION WIDTH 15.1 % (11.5-14.5)
[2017-06-02 06:44] LABS: ALBUMIN 1.2 g/dL (3.4-5.0); ALBUMIN/GLOBULIN RATIO 0.2 (1.0-1.7); CALCIUM 7.6 mg/dL (8.5-10.1); GFR 98.7; POTASSIUM 4.1 mmol/L (3.5-5.1); TOTAL BILIRUBIN 0.8 mg/dL (0.2-1.0); TOTAL PROTEIN 7.2 g/dL (6.4-8.2)
[2017-06-02 07:00] VITALS: BP 143/85
[2017-06-02] MEDS: METOPROLOL TART IMMED RELEASE 25 MG TABLET. PO SCH ×2 (08:33→20:52)
[2017-06-02] MEDS: POLYETHYLENE GLYCOL 3350 17 GM PACKET. PO PRN (08:33)
[2017-06-02] MEDS: DOCUSATE SODIUM 100 MG CAPSULE. PO SCH (08:33)
--- NOTE | 2017-06-02 10:45 | PDOC ---
Infectious Disease Note Subjective Subjective feeling better ROS ROS GEN: Denies fevers, chills, sweats HEENT: Denies blurred vision, sore throat CV: Denies chest pain RESP: Denies shortness of air, cough GI: Denies n/v/d NEURO: Denies confusion, dizziness MSK: Denies weakness, joint pain/swelling Vital Sign Vital Signs Vital Signs Date Time Temp Pulse Resp B/P (MAP) Pulse Ox O2 Delivery O2 Flow Rate FiO2 06/02/17 08:33 101 143/85 06/02/17 07:53 Room Air 06/02/17 07:00 98.9 19 96 98.9 Physical Exam PHYSICAL EXAM GENERAL: NAD, Alert HEENT: PERRL, OC/OP NECK: Supple, no JVD, no LN LUNGS: Clear HEART: S1S2, no gallop, no murmur ABD: Soft, NT, no organomegaly, no rebound EXT: No edema, no cyanosis MOVING VAN DRIVER: Alert, oriented x 3, no focal neurologic deficit SKIN: No rash IV: ok Labs Lab Laboratory Tests Test 06/02/17 05:10 White Blood Count 11.3 x10^3/uL (4.0-11.0) Red Blood Count 3.30 x10^6/uL (4.30-5.70) Hemoglobin 9.7 g/dL (13.0-17.5) Hematocrit 28.8 % (39.0-53.0) Mean Corpuscular Volume 87 fL (79-100) Mean Corpuscular Hemoglobin 29 pg (25-35) Mean Corpuscular Hemoglobin Concent 34 g/dL (31-37) Red Cell Distribution Width 15.1 % (11.5-14.5) Platelet Count 392 x10^3/uL (140-400) Neutrophils (%) (Auto) 72 % (31-73) Lymphocytes (%) (Auto) 13 % (24-48) Monocytes (%) (Auto) 12 % (0-9) Eosinophils (%) (Auto) 3 % (0-3) Basophils (%) (Auto) 0 % (0-3) Neutrophils # (Auto) 8.1 x10^3uL (1.8-7.7) Lymphocytes # (Auto) 1.5 x10^3/uL (1.0-4.8) Monocytes # (Auto) 1.3 x10^3/uL (0.0-1.1) Eosinophils # (Auto) 0.3 x10^3/uL (0.0-0.7) Basophils # (Auto) 0.0 x10^3/uL (0.0-0.2) Sodium Level 134 mmol/L (136-145) Potassium Level 4.1 mmol/L (3.5-5.1) Chloride Level 101 mmol/L (98-107) Carbon Dioxide Level 26 mmol/L (21-32) Anion Gap 7 (6-14) Blood Urea Nitrogen 9 mg/dL (8-26) Creatinine 1.0 mg/dL (0.7-1.3) Estimated GFR (Cockcroft-Gault) 98.7 BUN/Creatinine Ratio 9 (6-20) Glucose Level 126 mg/dL (70-99) Calcium Level 7.6 mg/dL (8.5-10.1) Total Bilirubin 0.8 mg/dL (0.2-1.0) Aspartate Amino Transf (AST/SGOT) 27 U/L (15-37) Alanine Aminotransferase (ALT/SGPT) 22 U/L (16-63) Alkaline Phosphatase 46 U/L (46-116) Total Protein 7.2 g/dL (6.4-8.2) Albumin 1.2 g/dL (3.4-5.0) Albumin/Globulin Ratio 0.2 (1.0-1.7) Objective Assessment Fever SIRS due to cellulitis of both lower extremities Cellulitis of both lower extremities. Ulceration of the right lower extremity. Polymicrobial Lymphedema of bilateral lower extremities due to morbid obesity. Leukocytosis. Lactic acidemia. Hyponatremia. Chronic kidney disease. Thrombocytosis. Plan Plan of Care vanc and meropenem pt/ot Leg elevation VENANCIO ROBBINS MD Jun 02, 2017 10:45
[2017-06-02 11:00] VITALS: BP 133/64
--- NOTE | 2017-06-02 13:01 | PDOC ---
PROGRESS NOTES Chief Complaint Chief Complaint Cellulitis ASSESSMENT AND PLAN: 1. Sepsis: resolved 2. Cellulitis: RLE. vanco/merrem as per ID; awaiting final decision re poss PO Abx before making D/C plans 3. LE lymphedema with chronic venous stasis changes: lymphedema treatments; acute rehab recommended 4. Thrombocytosis: reactive, improving. monitor 5. Hyponatremia: resolved 6. HAILEY on CKD3: vasomotor nephropathy. resolved 7. Severe PCM with morbid obesity: nutrition consult 8. Dispo: home with services when Abx determined History of Present Illness History of Present Illness in good spirits, no new issues Vitals Vitals Vital Signs Date Time Temp Pulse Resp B/P (MAP) Pulse Ox O2 Delivery O2 Flow Rate FiO2 06/02/17 08:33 101 143/85 06/02/17 07:53 Room Air 06/02/17 07:00 98.9 19 96 98.9 Physical Exam General: Alert, Oriented X3, Cooperative, No acute distress Heart: Regular rate Lungs: Clear Abdomen: Normal bowel sounds, Soft (very obese) Extremities: Other (massive lymphedema, a few inches deep on left ankle, maybe 4-5 inches of edema- deep on right skin to ankle, with promienent fold) Skin: No rashes, Other (R LE with deep skinfold erythema, malodorous. rest of skin very dry, flaking) Labs LABS Laboratory Tests Test 06/02/17 05:10 White Blood Count 11.3 x10^3/uL (4.0-11.0) Red Blood Count 3.30 x10^6/uL (4.30-5.70) Hemoglobin 9.7 g/dL (13.0-17.5) Hematocrit 28.8 % (39.0-53.0) Mean Corpuscular Volume 87 fL (79-100) Mean Corpuscular Hemoglobin 29 pg (25-35) Mean Corpuscular Hemoglobin Concent 34 g/dL (31-37) Red Cell Distribution Width 15.1 % (11.5-14.5) Platelet Count 392 x10^3/uL (140-400) Neutrophils (%) (Auto) 72 % (31-73) Lymphocytes (%) (Auto) 13 % (24-48) Monocytes (%) (Auto) 12 % (0-9) Eosinophils (%) (Auto) 3 % (0-3) Basophils (%) (Auto) 0 % (0-3) Neutrophils # (Auto) 8.1 x10^3uL (1.8-7.7) Lymphocytes # (Auto) 1.5 x10^3/uL (1.0-4.8) Monocytes # (Auto) 1.3 x10^3/uL (0.0-1.1) Eosinophils # (Auto) 0.3 x10^3/uL (0.0-0.7) Basophils # (Auto) 0.0 x10^3/uL (0.0-0.2) Sodium Level 134 mmol/L (136-145) Potassium Level 4.1 mmol/L (3.5-5.1) Chloride Level 101 mmol/L (98-107) Carbon Dioxide Level 26 mmol/L (21-32) Anion Gap 7 (6-14) Blood Urea Nitrogen 9 mg/dL (8-26) Creatinine 1.0 mg/dL (0.7-1.3) Estimated GFR (Cockcroft-Gault) 98.7 BUN/Creatinine Ratio 9 (6-20) Glucose Level 126 mg/dL (70-99) Calcium Level 7.6 mg/dL (8.5-10.1) Total Bilirubin 0.8 mg/dL (0.2-1.0) Aspartate Amino Transf (AST/SGOT) 27 U/L (15-37) Alanine Aminotransferase (ALT/SGPT) 22 U/L (16-63) Alkaline Phosphatase 46 U/L (46-116) Total Protein 7.2 g/dL (6.4-8.2) Albumin 1.2 g/dL (3.4-5.0) Albumin/Globulin Ratio 0.2 (1.0-1.7) ANTOINETTE ALVARADO MD Jun 02, 2017 13:01
[2017-06-02 15:00] VITALS: BP 157/77
[2017-06-02 19:00] VITALS: BP 149/79
[2017-06-02] MEDS: LINEZOLID 600 MG TABLET PO SCH (20:51)
[2017-06-02] MEDS: HYDROcodone/APAP 5/325MG 1 TAB TABLET PO PRN (20:51)
[2017-06-02 23:00] VITALS: BP 150/68
[2017-06-03 03:00] VITALS: BP 146/83
[2017-06-03] MEDS: HYDROcodone/APAP 5/325MG 1 TAB TABLET PO PRN ×2 (03:35→08:45)
[2017-06-03 07:00] VITALS: BP 160/85
[2017-06-03] MEDS: LINEZOLID 600 MG TABLET PO SCH (08:45)
[2017-06-03] MEDS: DOCUSATE SODIUM 100 MG CAPSULE. PO SCH (08:45)
[2017-06-03] MEDS: METOPROLOL TART IMMED RELEASE 25 MG TABLET. PO SCH (08:46)
[2017-06-03] MEDS: POLYETHYLENE GLYCOL 3350 17 GM PACKET. PO PRN (08:46)
[2017-06-03] MEDS ORDERED: AMMO225L5 TP (10:01)
[2017-06-03] MEDS ORDERED: METO25TA4 PO (10:01)
[2017-06-03] MEDS ORDERED: POLY17PO3 PO (10:01)
[2017-06-03] MEDS ORDERED: HYDR-2758 PO (10:01)
[2017-06-03] MEDS ORDERED: DOCU-109 PO (10:01)
[2017-06-03] MEDS ORDERED: LINE600T PO (10:01)
--- NOTE | 2017-06-03 10:28 | PDOC ---
Infectious Disease Note Subjective Subjective feeling better ROS ROS GEN: Denies fevers, chills, sweats HEENT: Denies blurred vision, sore throat CV: Denies chest pain RESP: Denies shortness of air, cough GI: Denies n/v/d NEURO: Denies confusion, dizziness MSK: Denies weakness, joint pain/swelling Vital Sign Vital Signs Vital Signs Date Time Temp Pulse Resp B/P (MAP) Pulse Ox O2 Delivery O2 Flow Rate FiO2 06/03/17 08:46 96 146/83 06/03/17 08:45 93 Room Air 06/03/17 07:00 97.9 20 97.9 Physical Exam PHYSICAL EXAM GENERAL: NAD, Alert HEENT: PERRL, OC/OP NECK: Supple, no JVD, no LN LUNGS: Clear HEART: S1S2, no gallop, no murmur ABD: Soft, NT, no organomegaly, no rebound EXT: No edema, no cyanosis STONE LAYER: Alert, oriented x 3, no focal neurologic deficit SKIN: No rash IV: ok Objective Assessment Fever SIRS due to cellulitis of both lower extremities Cellulitis of both lower extremities. Ulceration of the right lower extremity. Polymicrobial Lymphedema of bilateral lower extremities due to morbid obesity. Leukocytosis. Lactic acidemia. Hyponatremia. Chronic kidney disease. Thrombocytosis. Plan Plan of Care d/c zyvox, po vantin and flagyl pt/ot Leg elevation d/c VENANCIO Nunez MD Jun 03, 2017 10:28
[2017-06-03 10:44] VITALS: BP 120/73
[2017-06-03] MEDS ORDERED: CEFPODOXIME PROXETIL 100 MG TABLET. PO SCH (11:00)
[2017-06-03] MEDS ORDERED: metroNIDAZOLE 500 MG TABLET PO SCH (11:00)
[2017-06-03 15:45] VITALS: BP 119/90
[2017-06-03] MEDS ORDERED: CEFP200T PO (21:44)
[2017-06-03] MEDS ORDERED: METR500T8 PO (21:44)
--- NOTE | 2017-06-04 04:10 | DS ---
DATE OF DISCHARGE: 06/03/2017 CHIEF COMPLAINT: Cellulitis, lymphedema. HOSPITAL COURSE: The patient is a morbidly obese -[place] gentleman who presented with massive chronic lymphedema, skin folds with cellulitis. He was treated with IV antibiotics under ID service guidance. He was also seen by Wound Care, who cleaned the wound and applied lotions for his edema and compression dressings. He clinically improved significantly, was able to work with physical therapy and was deemed appropriate for home with continued home care. His antibiotics were switched to Vantin and Flagyl at time of discharge. PHYSICAL EXAMINATION: VITAL SIGNS: Show a blood pressure of 146/83, heart rate of 96, respiratory rate 20. GENERAL: This is a morbidly obese 44-year-old -[place] gentleman, alert and oriented, in no acute distress. LUNGS: Clear. HEART: Regular rate and rhythm. ABDOMEN: Has positive bowel sounds. EXTREMITIES: Lower extremities are wrapped in pressure bandages to knees. DISCHARGE DIAGNOSIS: Cellulitis, chronic lymphedema. DISCHARGE DISPOSITION: To home. DISCHARGE CONDITION: Improved. DISCHARGE MEDICATIONS: Please refer to MAR. DISCHARGE INSTRUCTIONS: The patient will follow up with [facility]hedema [facility] as arranged and see his primary care physician in 1-2 weeks. ANTOINETTE ALVARADO MD DR: LYNNE/nts JOB#: [id number] / [id number] KENZEI
== END 2017-06-03 15:44 | disposition home health service (06) | DRG 871 ==
LOC: ER 20:50 → 5 NORTH 22:00
PROVIDERS: ADMIT Internal Medicine; ATTEND Internal Medicine
DX: A41.9 Sepsis, unspecified organism (principal); N17.0 Acute kidney failure with tubular necrosis; E43 Unspecified severe protein-calorie malnutrition; E87.1 Hypo-osmolality and hyponatremia; L03.115 Cellulitis of right lower limb; L03.116 Cellulitis of left lower limb; L97.919 Non-pressure chronic ulcer of unspecified part of right lower leg with unspecified severity; Z68.45 Body mass index [BMI] 70 or greater, adult; D75.89 Other specified diseases of blood and blood-forming organs; E66.01 Morbid (severe) obesity due to excess calories; I87.8 Other specified disorders of veins; I89.0 Lymphedema, not elsewhere classified; M19.90 Unspecified osteoarthritis, unspecified site; N18.3 Chronic kidney disease, stage 3 (moderate); Z88.8 Allergy status to other drugs, medicaments and biological substances
CPT/HCPCS: 36415; 71010; 80048; 80053; 80202; 81001; 83605; 84484; 85025; 86140; 87040; 87070; 87186; 87205; 90715; 93005; 96365; J2185; J3370; J7030; J7040; 97110; 97116; 97140; 97530; 97535; 99285-25